=== PATIENT | male | born 1985 | race Caucasian/White ===

== ENCOUNTER 2021-06-16 21:24 | Emergency (ER) | payer SELFPAY ==
[2021-06-16] MEDS ORDERED: BACITRACIN ZINC OINT 1 PACKET TOP STA (23:30)
--- NOTE | 2021-06-16 23:32 | ED Physician Documentation ---
PD HPI SKIN - Stated complaint Stated Complaint: LACERATION R HAND - Chief complaint Chief Complaint: Laceration - History obtained from History obtained from: Patient - Additional information Additional information: 36-year-old man presents with laceration to base of right fifth finger while washing dishes. No other injuries. tetanus utd Review of Systems Skin: reports: Laceration (s) PD PAST MEDICAL HISTORY - Past Medical History Past Medical History: No - Past Surgical History Past Surgical History: No - Present Medications Home Medications: Ambulatory Orders Medication Instructions Recorded Confirmed No Known Home Medications 06/16/21 06/16/21 - Allergies Allergies/Adverse Reactions: Allergies Allergy/AdvReac Type Severity Reaction Status Date / Time No Known Drug Allergies Allergy Verified 06/16/21 21:34 - Social History Does the pt smoke?: No Smoking Status: Never smoker - Immunizations Immunizations are current?: Yes - POLST Patient has POLST: No PD ED PE NORMAL - Vitals Vital signs reviewed: Yes - General General: Alert and oriented X 3, No acute distress, Well developed/nourished - HEENT HEENT: Atraumatic, PERRL, EOMI - Derm Derm: Normal color, Warm and dry, Other (1cm lac to base of R 5th finger) - Extremities Extremities: Other (2+ radial pulse BL. normal cap refill, strength, sensation) - Neuro Neuro: No motor deficit, No sensory deficit Results - Vitals Vitals: Vital Signs - 24 hr 06/16/21 21:31 Temperature 36.0 C L Heart Rate 75 Respiratory 16 Rate Blood Pressure 119/73 O2 Saturation 99 Oxygen O2 Source Room air Procedures - Laceration (location) Finger right Length in cm: 1 Wound type: Linear, Superficial Neurovascular status: Sensory intact, Motor intact, Vascular intact Anesthesia: Other (1.5 mL ropivacaine 0.5%) Wound preparation: Irrigated copiously NS Deep layer closure: size #-0 - enter number (4), # sutures - enter number (3) Skin layer closure: Nylon Other: Patient tolerated well, No complications, Dressing applied, Tetanus UTD PD MEDICAL DECISION MAKING - ED course ED course: 36-year-old man presented with superficial laceration of right fifth finger repaired without difficulty. Return precautions given. Patient will follow up in 14 days for suture removal. Departure - Departure Disposition: 01 Home, Self Care Clinical Impression: Laceration Condition: Good Instructions: ED Laceration All Comments: You are seen in the emergency department for laceration of your finger. Please keep the bandage clean and dry for 24 hours and then change it daily thereafter return the emergency department you have any new or worsening symptoms or other concerns. Your stitches need to be taken out in 14 days. You had 3 stitches placed.
[2021-06-16 23:39] VITALS: BP 115/70
== END 2021-06-16 23:39 | disposition home or self-care (01) ==
LOC: ED 21:24
DX: S61.216A Laceration without foreign body of right little finger without damage to nail, initial encounter (principal); W25.XXXA Contact with sharp glass, initial encounter; Y93.G1 Activity, food preparation and clean up
CPT/HCPCS: 12001; 99281; A9270